=== PATIENT | male | born 1970 | race Asian ===

== ENCOUNTER 2021-01-18 03:03 | Emergency (ER) | payer SELFPAY ==
[~2021-01-18] VITALS: Ht 177.8 cm; Wt 81.6 kg
[2021-01-18 03:05] VITALS: BP_SYST 137
--- NOTE | 2021-01-18 03:12 | NUR ---
Patient to ER chair to [email or web address] for evaluation. Side rails up. Report given to Prashanth LOWERY.
--- NOTE | 2021-01-18 03:27 | NUR ---
Dr. Rojo bedside for pt eval
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
--- NOTE | 2021-01-18 03:53 | NUR ---
Portable X ray bedside, well tolerated
--- NOTE | 2021-01-18 04:23 | NUR ---
Lab at bedside for blood draw, well tolerated
[2021-01-18 04:28] LABS: MEAN CORPUSCULAR HEMOGLOBIN 30 pg (27-31)
[2021-01-18 04:39] LABS: BASOPHILS % (AUTO) 0.3 % (0.0-2.0); EOSINOPHILS % (AUTO) 0.3 % (0.0-4.0); HEMATOCRIT 43.6 % (36-54); LYMPHOCYTES # (AUTO) 0.9 K/uL (1.0-5.5); LYMPHOCYTES % (AUTO) 11.6 % (20.5-51.5); MEAN CORPUSCULAR HGB CONC 34 % (32-36); MEAN CORPUSCULAR VOLUME 88 fL (79.0-98.0); MONOCYTES # (AUTO) 0.3 K/uL (0.0-1.0); MONOCYTES % (AUTO) 3.9 % (1.7-9.3); NEUTROPHILS # (AUTO) 6.8 K/uL (1.8-7.7); NEUTROPHILS % (AUTO) 83.9 % (40.0-70.0); PLATELET COUNT (AUTO) 189 K/uL (130-430); RED BLOOD CELL COUNT(AUTO) 4.97 MIL/uL (4.2-6.2); RED CELL DISTRIBUTION WIDTH 12.5 % (9.0-15.0); WHITE BLOOD COUNT (AUTO) 8.1 K/uL (4.8-10.8)
[2021-01-18 04:47] LABS: CALCIUM 8.6 mg/dL (8.4-11.0); CREATININE 1.06 mg/dL (0.55-1.30); POTASSIUM 4.3 mmol/L (3.5-5.1)
[2021-01-18 04:52] LABS: ALBUMIN 4.1 g/dL (3.4-4.8); TOTAL BILIRUBIN 0.8 mg/dL (0.0-1.0)
[2021-01-18 05:40] VITALS: BP_SYST 137
--- NOTE | 2021-01-18 05:40 | NUR ---
Patient given written and verbal discharge instructions and verbalizes understanding. ER MD discussed with patient the results and treatment provided. Patient in stable condition. ID arm band removed. Patient educated on pain management and to follow up with PMD. Pain Scale 0/10 Opportunity for questions provided and answered.
== END 2021-01-18 05:40 ==
LOC: SED 03:03
DX: R07.89 Other chest pain (principal)
CPT/HCPCS: 36415; 71045; 80053; 84484; 85025; 93005; 99285